=== PATIENT | male | born 1980 | race African-American/Black ===

== ENCOUNTER 2019-03-27 11:33 | Emergency (ER) | payer OTHER ==
[2019-03-27 12:34] VITALS: BP 133/65
[2019-03-27 12:39] LABS: Influenza A Molecular POSITIVE (Negative)
[2019-03-27] MEDS ORDERED: NS 0.9% 1000 ML** 1,000 ML IV ONE ×2 (12:47→12:49)
[2019-03-27] MEDS ORDERED: Ondansetron INJ* 2 MG/ML VIAL IV ONE (12:48)
--- NOTE | 2019-03-27 13:27 | UC ---
HPI Febrile Illness - HPI Summary HPI Summary: Mr. Westbrook has had generalized arthralgias and myalgias, nausea and vomiting as well as malaise for the last 4 days. He comes in feeling a little bit dizzy. - History of Current Complaint Chief Complaint: UCGeneralIllness Time Seen by Provider: 03/27/19 12:28 Hx Obtained From: Patient Onset/Duration: Started Days Ago Timing: Constant Initial Severity: Moderate Current Severity: Severe Pain Intensity: 0 Aggravating Factors: Nothing Alleviating Factors: Nothing Associated Signs and Symptoms: Arthralgia, Chills, Diaphoresis, Myalgia, Weakness - Allergy/Home Medications Allergies/Adverse Reactions: Allergies Allergy/AdvReac Type Severity Reaction Status Date / Time acetaminophen [From Tylenol] Allergy Rash Verified 03/27/19 12:34 haloperidol [From Haldol] Allergy anaph Verified 03/27/19 12:34 Home Medications: Home Medications OXcarbazepine TAB(*) [Trileptal 300 mg TAB(*)] 1 tab PO DAILY 03/27/19 [History Confirmed 03/27/19] lamoTRIgine TAB(*) [Lamictal TAB(*)] 1 tab PO DAILY 03/27/19 [History Confirmed 03/27/19] PMH/Surg Hx/FS Hx/Imm Hx Previously Healthy: Yes - Surgical History Surgical History: Yes Surgery Procedure, Year, and Place: Left knee surgery-REMOVED FLUID 3 YRS AGO, hernia - Family History Known Family History: Positive: Hypertension, Diabetes, Seizure Disorder - Social History Alcohol Use: None Substance Use Type: None Smoking Status (MU): Heavy Every Day Tobacco Smoker Household Exposure Type: Cigarettes Review of Systems All Other Systems Reviewed And Are Negative: Yes Constitutional: Positive: Fever, Chills, Fatigue Skin: Positive: Negative ENT: Positive: Nasal Discharge Respiratory: Positive: Cough Cardiovascular: Positive: Negative Gastrointestinal: Positive: Vomiting, Diarrhea, Nausea Musculoskeletal: Positive: Arthralgia, Myalgia Neurological: Positive: Weakness Physical Exam - Summary Physical Exam Summary: His vital signs were okay here but he looked pretty miserable. Triage Information Reviewed: Yes Appearance: No Pain Distress Vital Signs: Initial Vital Signs Temp 99.9 F 03/27/19 12:30 Pulse 64 03/27/19 12:30 Resp 18 03/27/19 12:30 BP 133/65 03/27/19 12:30 Pulse Ox 96 03/27/19 12:30 Vital Signs Reviewed: Yes Eye Exam: Normal ENT: Positive: Pharyngeal erythema, Nasal congestion Neck exam: Normal Neck: Positive: Supple, Nontender Respiratory: Positive: Lungs clear, Normal breath sounds, No respiratory distress, No accessory muscle use Cardiovascular: Positive: RRR, No Murmur Abdominal Exam: Normal Musculoskeletal: Positive: Strength Intact Course/Dx - Course Course Of Treatment: His fluid was positive here. He is outside the window. IV was placed and he was hydrated as well as given Zofran. Subsequent to that he looked and felt much improved and I will discharge him with a prescription for Zofran ODT to use and instructions for symptomatic treatment of influenza. - Diagnoses Provider Diagnosis: Influenza A Discharge ED - Sign-Out/Discharge Documenting (check all that apply): Patient Departure All imaging exams completed and their final reports reviewed: No Studies - Discharge Plan Condition: Stable Disposition: HOME Patient Education Materials: Influenza (ED) Referrals: Renetta Lundberg MD [Primary Care Provider] - - Billing Disposition and Condition Condition: STABLE Disposition: Home
== END 2019-03-27 14:00 | disposition home or self-care (01) ==
LOC: UCEAST 11:33
DX: J10.1 Influenza due to other identified influenza virus with other respiratory manifestations (principal); F17.210 Nicotine dependence, cigarettes, uncomplicated; Z88.8 Allergy status to other drugs, medicaments and biological substances
CPT/HCPCS: 96360; 96374; 99212; G0463; J2405